=== PATIENT | female | born 1985 | race African-American/Black ===

== ENCOUNTER 2019-09-09 01:09 | Emergency (ER) | payer MEDICAID ==
[~2019-09-09] VITALS: Ht 167.6 cm; Wt 86.2 kg
[2019-09-09 02:26] LABS: Urine Bacteria MOD /hpf (None Seen); Urine Blood Negative /uL (Negative); Urine Hyaline Cast MANY /lpf (0 - 2); Urine Mucus FEW (None Seen); Urine Specific Gravity 1.029 (1.001-1.035); Urine WBC 7 /hpf (0 - 5)
[2019-09-09 02:35] LABS: Amphetamine Screen, Urine POSITIVE (NEGATIVE); Barbiturate Scree,Urine NEGATIVE (NEGATIVE); Benzodiazephine Screen, Urine NEGATIVE (NEGATIVE); Cannabinoid Screen, Urine NEGATIVE (NEGATIVE); Cocaine Screen, Urine NEGATIVE (NEGATIVE); Opiate Scree,Urine NEGATIVE (NEGATIVE); Phencyclidine Screen, Urine NEGATIVE (NEGATIVE)
[2019-09-09 02:55] LABS: Basophils # (auto) 0.1 uL; Eosinophils # (auto) 0 uL; Eosinophils % (auto) 0.4 % (0.0-7.0); Hemoglobin 14.7 g/dL (12.2-16.2)
[2019-09-09 02:57] LABS: Basophils % (auto) 0.9 % (0.0-2.0); Lymphocytes # (auto) 3.9 uL; Lymphocytes % (auto) 50.3 % (10.0-50.0); Mean Corpuscular Hgb Conc. 33.4 g/dL (32.0-36.0); Mean Corpuscular Volume 80.9 fL (80.0-100.0); Monocytes # (auto) 0.4 uL; Monocytes % (auto) 5.8 % (0.0-12.0); Neutrophils # (auto) 3.3 uL; Neutrophils % (auto) 42.6 % (37.0-80.0); Nucleated Red Blood Cells % 0.1 %; Platelet Count (auto) 265 10^3/uL (140-450); Red Blood Cells 5.44 10^6/uL (4.0-5.20); Red Cell Distribution Width 13.2 % (11.8-14.3); White Blood Cell 7.7 10^3/uL (4.4-10.8)
[2019-09-09 03:03] LABS: Albumin 3.9 g/dL (3.4-5.0); Anion Gap 8 (5-15); BUN/Creatinine Ratio 10.4; Blood Alcohol < 3.0 mg/dL (0-5); Blood Urea Nitrogen 10 mg/dL (7-18); Carbon Dioxide 24 mmol/L (21-32); Chloride 105 mmol/L (98-107); GFR African American 85 mL/min; GFR Non-African American 70 mL/min; Potassium 4.1 mmol/L (3.5-5.1); Sodium 137 mmol/L (136-145)
[2019-09-09 03:05] LABS: Salicylate 3.8 mg/dL (2.8-20.0)
[2019-09-09 03:06] LABS: Alanine Aminotransferase 14 U/L (13-56); Alkaline Phosphatase 78 U/L (45-117); Aspartate Aminotransferase 30 U/L (15-37); Bilirubin, Total 0.6 mg/dL (0.2-1.0); Total Protein 8.2 g/dL (6.4-8.2)
[2019-09-09 03:08] LABS: Glucose 49 mg/dL (74-106)
[2019-09-09 03:09] LABS: Acetaminophen < 2.0 ug/mL (10-30)
[2019-09-09] MEDS ORDERED: SODIUM CHLORIDE 0.9% 1,000 ML IV ONE (03:30)
[2019-09-09 12:22] VITALS: BP 112/78
== END 2019-09-09 12:54 | disposition home or self-care (01) ==
LOC: EDBD 01:09 → EDSEX 01:09 → ER 01:12
DX: F32.9 Major depressive disorder, single episode, unspecified (principal); R41.82 Altered mental status, unspecified; F41.9 Anxiety disorder, unspecified; F20.9 Schizophrenia, unspecified; N39.0 Urinary tract infection, site not specified; F10.10 Alcohol abuse, uncomplicated; F15.10 Other stimulant abuse, uncomplicated; F12.10 Cannabis abuse, uncomplicated; F17.210 Nicotine dependence, cigarettes, uncomplicated
CPT/HCPCS: 36415; 80053; 80307; 80320; 80329; 81001; 82962; 85025; 96360; 99284; J7030

== ENCOUNTER 2019-12-09 16:58 | Emergency (ER) | payer MEDICAID ==
[~2019-12-09] VITALS: Ht 172.7 cm; Wt 68.0 kg
[2019-12-09 17:42] VITALS: BP 119/79
[2019-12-09 18:09] LABS: Basophils # (auto) 0 10 ^3/uL (0-0.2); Basophils % (auto) 0.5 % (0.0-2.0); Eosinophils # (auto) 0.1 10 ^3/uL (0-0.8); Eosinophils % (auto) 0.8 % (0.0-7.0); Hematocrit 40.3 % (36.0-46.0); Hemoglobin 13.6 g/dL (12.2-16.2); Lymphocytes # (auto) 2.4 10 ^3/uL (0.4-5.4); Lymphocytes % (auto) 29.3 % (10.0-50.0); Mean Corpuscular Hgb Conc. 33.7 g/dL (32.0-36.0); Mean Corpuscular Volume 80.2 fL (80.0-100.0); Monocytes # (auto) 0.4 10 ^3/uL (0-1.3); Monocytes % (auto) 5.1 % (0.0-12.0); Neutrophils # (auto) 5.2 10 ^3/uL (1.6-8.6); Neutrophils % (auto) 64.3 % (37.0-80.0); Platelet Count (auto) 261 10^3/uL (140-450); Red Blood Cells 5.03 10^6/uL (4.0-5.20); Red Cell Distribution Width 13.5 % (11.8-14.3); White Blood Cell 8.1 10^3/uL (4.4-10.8)
[2019-12-09 18:33] LABS: Alanine Aminotransferase 18 U/L (13-56); Albumin 3.6 g/dL (3.4-5.0); Anion Gap 7 (5-15); Blood Alcohol < 3.0 mg/dL (0-5); Blood Urea Nitrogen 8 mg/dL (7-18); Carbon Dioxide 25 mmol/L (21-32); Chloride 106 mmol/L (98-107); Glucose 104 mg/dL (74-106); Potassium 3.8 mmol/L (3.5-5.1); Sodium 138 mmol/L (136-145)
[2019-12-09 18:36] LABS: Acetaminophen < 2.0 ug/mL (10-30); Alkaline Phosphatase 94 U/L (45-117); Aspartate Aminotransferase 18 U/L (15-37); BUN/Creatinine Ratio 9.1; Bilirubin, Total < 0.1 mg/dL (0.2-1.0); GFR African American 94 mL/min; GFR Non-African American 77 mL/min; Total Protein 7.5 g/dL (6.4-8.2)
== END 2019-12-10 02:35 | disposition left against medical advice (07) ==
LOC: EDBD 16:58 → ER 16:58
DX: F31.9 Bipolar disorder, unspecified (principal); Z53.21 Procedure and treatment not carried out due to patient leaving prior to being seen by health care provider
CPT/HCPCS: 36415; 80053; 80320; 80329; 85025

== ENCOUNTER 2019-12-28 22:53 | Emergency (ER) | payer MEDICAID ==
[~2019-12-28] VITALS: Ht 167.6 cm; Wt 84.4 kg
[2019-12-28 23:44] VITALS: BP 135/79
== END 2019-12-28 23:44 | disposition left against medical advice (07) ==
LOC: EDBD 22:53 → ER 22:56
DX: F99 Mental disorder, not otherwise specified (principal); Z53.21 Procedure and treatment not carried out due to patient leaving prior to being seen by health care provider